=== PATIENT | male | born 1975 | race Caucasian/White ===

== ENCOUNTER 2023-06-06 11:40 | Emergency (ER) | payer OTHER ==
[2023-06-06 12:22] VITALS: BP 139/80; PULSE 68; RESP 16; TEMP 97.5; BMI 30.4
[2023-06-06] MEDS ORDERED: ACETAMINOPHEN 500 MG TABLET (FP) PO ONE (13:26)
[2023-06-06] MEDS ORDERED: LIDOCAINE 4% PATCH TP ONE ×2 (13:26→13:48)
[2023-06-06] MEDS ORDERED: ACETAMINOPHEN 500 MG TABLET (FP) ONE (13:48)
[2023-06-06] MEDS ORDERED: LIDOCAINE PATCH REMOVAL MC SCH (22:00)
== END 2023-06-06 15:15 | disposition home or self-care (01) ==
LOC: JERFT 11:40
DX: R07.89 Other chest pain (principal); W00.0XXA Fall on same level due to ice and snow, initial encounter
CPT/HCPCS: 71101-TC-RT-FY; 99283-25